=== PATIENT | female | born 1970 | race Caucasian/White ===

== ENCOUNTER 2021-08-28 14:25 | Emergency (ER) | payer OTHER ==
[2021-08-28 14:36] VITALS: BP 155/96; PULSE 88; TEMP 98.8; BMI 42.9
[2021-08-28] MEDS ORDERED: IBUPROFEN 400 MG TABLET (FP) PO ONE ×2 (14:40→14:44)
== END 2021-08-28 15:41 | disposition home or self-care (01) ==
LOC: FER 14:25
DX: S16.1XXA Strain of muscle, fascia and tendon at neck level, initial encounter (principal); S80.02XA Contusion of left knee, initial encounter; V43.52XA Car driver injured in collision with other type car in traffic accident, initial encounter
CPT/HCPCS: 99283-25

== ENCOUNTER 2021-12-20 13:35 | Emergency (ER) | payer OTHER ==
[2021-12-20 13:44] VITALS: BP 141/78; PULSE 80; RESP 16; TEMP 98; BMI 42.9
== END 2021-12-20 16:06 | disposition home or self-care (01) ==
LOC: FER 13:35 → SUPCPDRO 13:35 → FER 16:06
DX: R51.9 Headache, unspecified (principal); M54.50 Low back pain, unspecified; M25.551 Pain in right hip; M25.571 Pain in right ankle and joints of right foot; V03.00XA Pedestrian on foot injured in collision with car, pick-up truck or van in nontraffic accident, initial encounter
CPT/HCPCS: 70450-TC; 72125-TC; 72170-TC-FY; 73502-TC-RT-FY; 73610-TC-RT-FY; 99285-25